=== PATIENT | female | born 1985 | race Caucasian/White ===

== ENCOUNTER → 2021-07-22 | Outpatient (CLI) | payer BC ==
[~2021-07-22] MED LIST: IBU800 M1 PO; ROXICODONE 55 MG/TAB PO; ULTRAM 50MG TAB50 MG PO
== END ==
LOC: COL.RAD 12:14
DX: N28.1 Cyst of kidney, acquired (principal)

== ENCOUNTER → 2021-10-03 | Outpatient (CLI) | payer BC ==
[2021-10-03] VITALS (7 sets, daily range): BP systolic 114–130; BP diastolic 73–90; PULSE 63–88; TEMP 97.8
[~2021-10-03] VITALS: Ht 162.6 cm; Wt 65.8 kg
== END ==
LOC: COL.RAD 11:45
DX: N28.1 Cyst of kidney, acquired (principal)